=== PATIENT | female | born 1960 | race Caucasian/White ===

== ENCOUNTER 2019-09-20 09:52 | Emergency (ER) | payer BC ==
--- NOTE | 2019-09-20 10:33 | EDM.PDOC ---
ED HPI GENERAL MEDICAL PROBLEM - General Chief Complaint: Skin Complaint Stated Complaint: R KNEE INJURY Time Seen by Provider: 09/20/19 10:05 Source of Information: Reports: Patient History Limitations: Reports: No Limitations - History of Present Illness INITIAL COMMENTS - FREE TEXT/NARRATIVE: Patient presents with concerns of 2 lacerations to her right knee. Was out walking her dog yesterday around 1600, the dog pulled hard on the leash and she fell forward on the sidewalk, landing on her knees. Noted abrasions, skin tears and lacerations to her right knee. Abrasions to her left knee. Thought would heal fine without treatment but is having a hard time flexing her knee without the wound opening up and bleeding. No difficulty bearing weight. Last tetanus in 2011. Duration: Hour(s): Location: Reports: Lower Extremity, Right Quality: Reports: Ache Severity: Mild Context: Reports: Trauma Associated Symptoms: Reports: No Other Symptoms - Related Data Allergies Allergy/AdvReac Type Severity Reaction Status Date / Time No Known Allergies Allergy Verified 09/20/19 10:32 Home Meds: Home Meds Denosumab [Prolia] 60 mg Q6M 09/20/19 [History] Past Medical History Musculoskeletal History: Reports: Osteoporosis Social & Family History - Tobacco Use Smoking Status *Q: Unknown Ever Smoked ED ROS GENERAL - Review of Systems Review Of Systems: See Below Constitutional: Reports: No Symptoms HEENT: Reports: No Symptoms Respiratory: Reports: No Symptoms Cardiovascular: Reports: No Symptoms Endocrine: Reports: No Symptoms GI/Abdominal: Reports: No Symptoms Musculoskeletal: Reports: Joint Pain Skin: Reports: Wound Neurological: Reports: No Symptoms Psychiatric: Reports: No Symptoms ED EXAM, SKIN/RASH Exam: See Below Exam Limited By: No Limitations General Appearance: Alert, WD/WN, No Apparent Distress Extremities: Normal Range of Motion, No Pedal Edema, Normal Capillary Refill. No: Increased Warmth Neurological: Alert, Oriented Skin: Wound/Incision (2 lacerations, 3 skin tears to right knee. Superficial abrasions and bruising to left knee) Location, Skin: Lower Extremity, Right Characteristics: Linear ED SKIN PROCEDURES - Laceration/Wound Repair Right Knee Appearance: Linear, Clean Distal NVT: Neuro & Vascular Intact Anesthetic Type: Local Local Anesthesia - Lidocaine (Xylocaine): 1% Plain Local Anesthetic Volume: 3cc Skin Prep: Chlorhexidine (Hibiciens) Exploration/Debridement/Repair: Wound Explored, Explored to Base Closed with: Sutures Lac/Wound length In cm: 4 (2 laceration, both 2 cm in length) Suture Size: 4-0 # of Sutures: 4 Suture Type: Nylon, Interrupted, Simple Sterile Dressing Applied: Provider Tetanus Status Addressed: Yes Complications: No Course - Orders/Labs/Meds Meds: Medications Discontinued Medications Generic Name Dose Route Start Last Admin Trade Name Ann-Marie PRN Reason Stop Dose Admin Lidocaine HCl 5 ml 09/20/19 10:09 09/20/19 10:15 Xylocaine-Mpf 1% INJECT 09/20/19 10:10 5 ml ONETIME ONE Administration Departure - Departure Time of Disposition: 10:30 Disposition: Home, Self-Care 01 Condition: Good Clinical Impression: Laceration of knee without complication - Discharge Information *PRESCRIPTION DRUG MONITORING PROGRAM REVIEWED*: No *COPY OF PRESCRIPTION DRUG MONITORING REPORT IN PATIENT DANITA: No Instructions: Laceration Care, Adult Forms: ED Department Discharge Additional Instructions: 1. Keep wound clean and dry 2. Leave bandage on to right knee for 24 hours unless needs to be reinforced or changed 3. Change bandage daily for 3 days, may leave open to air after but covered if exposed to elements 4. Sutures out in 10 days, steri strips will fall off on own 5. Watch for any signs of infections, ie. increased redness, drainage, pain 6. Call with any questions or concerns. Sepsis Event Note - Focused Exam Date Exam was Performed: 09/20/19 Time Exam was Performed: 10:53
== END 2019-09-20 10:40 | disposition home or self-care (01) ==
LOC: VM.ED 09:52
DX: S81.011A Laceration without foreign body, right knee, initial encounter (principal); S80.02XA Contusion of left knee, initial encounter; W10.1XXA Fall (on)(from) sidewalk curb, initial encounter; Y93.01 Activity, walking, marching and hiking
CPT/HCPCS: 12002; 99282; J2001